=== PATIENT | female | born 1930 | race Caucasian/White ===

== ENCOUNTER 2017-10-20 22:53 | Emergency (ER) | payer BC, OTHER ==
[~2017-10-20] VITALS: Ht 154.9 cm; Wt 49.9 kg
[~2017-10-20 22:53] MED LIST: ASPIRIN81 M1 PO; METOPROLOL SUC100 MG PO
[2017-10-21 03:21] VITALS: BP 199/77
== END 2017-10-21 03:23 | disposition home or self-care (01) ==
LOC: EME 22:53
DX: S02.2XXA Fracture of nasal bones, initial encounter for closed fracture (principal); S00.83XA Contusion of other part of head, initial encounter; S40.012A Contusion of left shoulder, initial encounter; M25.561 Pain in right knee; M25.562 Pain in left knee; J98.11 Atelectasis; W01.0XXA Fall on same level from slipping, tripping and stumbling without subsequent striking against object, initial encounter; Y93.01 Activity, walking, marching and hiking; Y92.007 Garden or yard of unspecified non-institutional (private) residence as the place of occurrence of the external cause; I10 Essential (primary) hypertension; Z79.82 Long term (current) use of aspirin; Z88.5 Allergy status to narcotic agent; Z95.1 Presence of aortocoronary bypass graft
CPT/HCPCS: 70450; 70486; 71046; 72125; 72170; 73030; 73564; 99281; 99284